=== PATIENT | male | born 1950 | race Caucasian/White ===

== ENCOUNTER 2019-04-07 07:05 | Day surgery (SDC) | payer MEDICARE ==
[~2019-04-07 07:05] MED LIST: Bupivacaine 0.5% 50 ML MDV ONE; Lidocaine 1% with EPINEPHrine 1:100,000 50 ML MDV ONE
[2019-04-07] MEDS ORDERED: fentaNYL 100 MCG/2 ML SDV ONE (07:23)
[2019-04-07] MEDS ORDERED: Midazolam 1 MG/ML 2 ML SDV ONE (07:23)
[2019-04-07] MEDS ORDERED: Propofol 200 MG/20 ML SDV ONE ×2 (07:23→08:32)
[2019-04-07] MEDS ORDERED: Sodium Chloride 0.9% 1,000 ML IV SCH (07:30)
[2019-04-07] MEDS ORDERED: ceFAZolin 2 GM in Premix Bag 1 BAG IV ONE (08:00)
--- NOTE | 2019-04-07 10:41 | OR ---
DATE OF PROCEDURE: 04/07/2019 SURGEON: Sav Maldonado MD PROCEDURE: Excision of abdominal mass from right abdomen, 4.2 cm, most consistent with lipoma. COMPLICATIONS: None. CHANNEL PROCESS SUPERVISOR: None. ANESTHESIA: MAC. RISKS: Risks, benefits, alternatives, and limitations including, but not limited to infection, bleeding, and chronic wounds were explained to the patient, who wished to proceed. PROCEDURE IN DETAIL: The patient was placed in supine position. The area was prepped and draped. A transverse incision was made to the aforementioned size. This was after anesthetized with lidocaine. Metzenbaum scissors was used to circumnavigate the mass. This was delivered without difficulty. This was then closed in three layers, interrupted 4-0 running. Dermabond was applied. The patient tolerated the procedure well. Sav Maldonado MD /[id number]
--- NOTE | 2019-04-07 13:13 | OR ---
DATE OF PROCEDURE: 04/07/2019 SURGEON: Sav Maldonado MD PROCEDURE: Transversus abdominis plane block, bilateral. COMPLICATIONS: None. [employer]: None. RISKS: Risks, benefits, alternatives, and limitations including, but not limited to infection, bleeding, and injury to abdominal structures were explained to the patient, who wished to proceed. PROCEDURE IN DETAIL: The patient was placed in supine position. The patient was prepped bilaterally. The left side was addressed first. Using the 11 megahertz ultrasound probe, the needle was introduced under direct guidance and the entire contrast was injected into transversus plane. The right side was then performed in the same manner, same fashion, same technique in the same sequence, except different needle and syringe. Dressings were applied. The patient tolerated the procedure well. Sav Maldonado MD /[id number]
== END 2019-04-07 10:30 | disposition home or self-care (01) ==
LOC: JP.SDS 07:05
PROVIDERS: ATTEND Surgery
DX: D17.1 Benign lipomatous neoplasm of skin and subcutaneous tissue of trunk (principal); G89.18 Other acute postprocedural pain
CPT/HCPCS: 88304; J0171; J0690; J1100; J2250; J2704; J2795; J3010; J3490; J7030; J7050